=== PATIENT | female | born 1970 | race Caucasian/White ===

== ENCOUNTER 2019-08-14 18:33 | Emergency (ER) | payer MEDICAID ==
[~2019-08-14] VITALS: Ht 160 cm; Wt 68.2 kg
[~2019-08-14 18:33] MED LIST: IBUP-1986 PO
[2019-08-14] MEDS ORDERED: LIDOcaine 1% W/epiNEPHrine 1:200,000 10ml vial IJ ONE (20:35)
[2019-08-14] MEDS ORDERED: CEPH250T PO (20:49)
[2019-08-14] MEDS ORDERED: BACDS PO (20:49)
[2019-08-14 20:58] VITALS: BP 132/93
== END 2019-08-14 20:59 | disposition home or self-care (01) ==
LOC: ER 18:34
DX: L02.415 Cutaneous abscess of right lower limb (principal); F17.200 Nicotine dependence, unspecified, uncomplicated; Z88.5 Allergy status to narcotic agent; Z79.2 Long term (current) use of antibiotics; Z79.899 Other long term (current) drug therapy
CPT/HCPCS: 10060; 99283

== ENCOUNTER 2024-01-18 22:03 | Emergency (ER) | payer MEDICAID ==
[~2024-01-18] VITALS: Ht 160 cm; Wt 79.9 kg
[2024-01-18 23:06] VITALS: BP 132/112; PULSE 114; RESP 16; TEMP 99.1; O2SAT 98
== END 2024-01-18 23:29 | disposition home or self-care (01) ==
LOC: ER 22:03
DX: B34.9 Viral infection, unspecified (principal); Z20.822 Contact with and (suspected) exposure to COVID-19; Z88.6 Allergy status to analgesic agent; Z79.1 Long term (current) use of non-steroidal anti-inflammatories (NSAID)
CPT/HCPCS: 36415; 87811; 99283

== ENCOUNTER → 2024-09-18 | Emergency (ER) | payer MEDICAID ==
[~2024-09-18] VITALS: Ht 160 cm; Wt 83.3 kg
[~2024-09-18] MED LIST changes: +ALBU18HF2 INH; +GUAI120015 PO; +GUAI1TBM19 PO; +HYDR-3965 PO; +PRED10TA23 PO; +PRED20TA PO
[2024-09-18 12:13] VITALS: BP 164/107; PULSE 113; RESP 16; O2SAT 94
--- NOTE | 2024-09-18 12:38 | RADIOLOGY REPORT ---
EXAM: DI CHEST,SINGLE VIEW Indication: Pain; r/o pna Technique: Single frontal view of the chest was obtained Comparison: None FINDINGS: Lines and Tubes: None Lungs: No focal consolidation. Pleura: No effusion. No pneumothorax. Cardiomediastinal contours: Unremarkable Bones: No acute osseous abnormality. IMPRESSION: No acute cardiopulmonary disease.
--- NOTE | 2024-09-18 13:03 | Physician Documentation ---
History of Present Illness ~ Chief Complaint: Cold, cough & congestion Stated Complaint: COUGH Time Seen by MD: 13:02 HPI This is a 83-year-old female who presents to the emergency department due to a week of cough. She notes that she was had a history of pneumonia, it was concerned that this may be again happening. She also asks that a lump be examines. This is the site of a previous umbilical piercing. She was denies chills or fever, chest pain or shortness of breath. She does admit to long-term history of smoking, currently intaking about a 3rd of pack a day. Medication Reconciliation Allergies: Coded Allergies: acetaminophen (Unverified Allergy, Unknown, 01/18/24) hydrocodone (Verified Allergy, Unknown, 01/18/24) Scheduled Guaifenesin (Mucinex), 1 TAB PO Q12H Ibuprofen (Ibuprofen), 1 TAB PO Q8H Ibuprofen (Ibuprofen), 1 TAB PO Q8H Prednisone* (Prednisone*), 2 TAB PO DAILY Scheduled PRN Albuterol Sulfate (Ventolin Hfa), 2 PUFFS INH Q4HPRN PRN for wheezing Past Medical History Past Medical History: No Pertinent History Past Surgical History: noncontributory Lives with: Family Lives In: Home Review of Systems ROS As stated above in the HPI, otherwise all systems are reviewed and negative. Physical Exam Vital Signs: Temperature: 98.4, Source: Oral, Heart Rate: 113, Respiratory Rate: 16, BP: 164/107, Pulse Oximetry: 94, Weight: 83.300 Oxygen Flow Rate: 0 Physical Exam General: Alert, no apparent distress. Neck: Full range of motion. Respiratory: Moderate wheezing, no distress. Chest: No accessory muscle use. Cardiovascular: Regular rate and rhythm, no murmurs. Gastrointestinal: Soft, nontender, nondistended except at site of umbilical hernia, which is partially reducible but no purple/hard/discolored. Bowels sounds present. Extremities: Normal range of motion, no deformity. Neurologic: Oriented x4. Psychiatric: Normal mood and affect. Skin: Normal color, warm and dry. No edema, no ecchymosis. Progress Results/Orders Results/Orders Vital Signs 09/18/24 12:13 Temp 98.4 Pulse 113 Resp 16 B/P (MAP) 164/107 Pulse Ox 94 O2 Flow Rate 0 EKG/XRAY/CT/US/VASC/MRI Chest X-Ray : Additional Comments DIAGNOSTIC RADIOLOGY Patient: DIANNA BOURGEOIS Medical Record: [id number] [facility] 1970, Age: 53 Sex: Female Location: ER Patient Status: PRE ER Service Date/Time: 09/18/24/ 7 Ordering Physician: KODY KATHLEEN MD Exam: CHEST,SINGLE VIEW EXAM: DI CHEST,SINGLE VIEW Indication: Pain; r/o pna Technique: Single frontal view of the chest was obtained Comparison: None FINDINGS: Lines and Tubes: None Lungs: No focal consolidation. Pleura: No effusion. No pneumothorax. Cardiomediastinal contours: Unremarkable Bones: No acute osseous abnormality. IMPRESSION: No acute cardiopulmonary disease. Electronically Signed by:TOY TALBERT MD Date & Time: 09/18/24 1235 Dictated by: TOY TALBERT MD Dictation date and time: 09/18/24 1222 Primary Care Provider: cc: KODY KATHLEEN MD ~ Medical Decision Making Differential Dx:Considerations: Include: Allergic rhinitis, Influenza, Otitis media, Peritonsillar abscess, Pharyngitis-Diphtheria, Pharyngitis-Streptoccal, Pharyngitis-Viral, Pneumonia, Pnuemonitis, Sinusitis, URI Differential Diagnosis This patient presented with two concerns today. First of all, she was had a cough for a week, concerned about pneumonia. On exam, she was found to be in no distress it was normal oxygen saturations, but it was found to have moderate wheezing. A chest x-ray was obtained by the triage nurse. This is reviewed and interpreted as normal with no evidence of pneumonia. The patient has a long smoking history, and this likely represents an exacerbation of COPD or bronchitis. She will be treated with prednisone, Ventolin, Mucinex. Discussed with her danger signs of her umbilical hernia, and that she will eventually need to have surgery done for this. She should see her primary care and request a referral to General surgery. At this time, no evidence of surgical emergency was found. She is to return if worse. Departure Time of Disposition: 13:07 Disposition: 01 HOME / SELF CARE / HOMELESS Impression: Primary Impression: Umbilical hernia Qualified Codes: K42.9 - Umbilical hernia without obstruction or gangrene Additional Impressions: URI (upper respiratory infection) Qualified Codes: J06.9 - Acute upper respiratory infection, unspecified Acute bronchitis Qualified Codes: J20.9 - Acute bronchitis, unspecified Discharge Instructions: Umbilical Hernia, Adult, Upper Respiratory Infection, Adult, Acute Bronchitis, Adult Additional Instructions: The prescribed medications for your upper respiratory infection. Ask your primary care provider for a referral to General surgery to evaluate your umbilical hernia. He will provided with the contact information of local general surgeon Dr. Suarez. Return if worse, otherwise follow up with your primary care. Referrals: MECHE DEVI MD Prescriptions Prednisone* (Prednisone*) 20 Mg Tablet 2 TAB PO DAILY, #10 TAB Prov: ELY MANDEL NP 09/18/24 Guaifenesin (Mucinex) 1,200 Mg Tbbp.12hr 1 TAB PO Q12H for cough for 15 Days, #30 TAB 0 Refills Prov: ELY MANDEL NP 09/18/24 Albuterol Sulfate (Ventolin Hfa) 90 Mcg Hfa.aer.ad 2 PUFFS INH Q4HPRN PRN for wheezing for 30 Days, #18 GM 0 Refills Prov: ELY MANDEL NP 09/18/24 Education Educated: Patient Educated regarding: diagnosis, treatment, prognosis, need for follow up Signature Scribe Signature: no scribe Attestation: The note accurately reflects work and decisions made by me.Ely Khan NP 09/18/24 13:12 ELY MANDEL NP Sep 18, 2024 13:03
[2024-09-18 13:16] VITALS: TEMP 98.4
== END | disposition home or self-care (01) ==
LOC: ER 12:08
DX: K42.9 Umbilical hernia without obstruction or gangrene (principal); J20.9 Acute bronchitis, unspecified; J06.9 Acute upper respiratory infection, unspecified; Z88.6 Allergy status to analgesic agent; Z88.5 Allergy status to narcotic agent; Z79.1 Long term (current) use of non-steroidal anti-inflammatories (NSAID); Z79.899 Other long term (current) drug therapy
CPT/HCPCS: 71045; 99283

== ENCOUNTER 2024-09-19 16:10 | Inpatient (IN) | payer MEDICAID ==
[~2024-09-19] VITALS: Ht 160 cm; Wt 75.0 kg
[~2024-09-19 16:10] MED LIST changes: -GUAI1TBM19 PO; -HYDR-3965 PO; -PRED10TA23 PO
[2024-09-19 16:47] LABS: BASOPHILS % (AUTO) 0.2 % (0-1); EOSINOPHILS # (AUTO) 0.1 X10'3 (0-0.9); EOSINOPHILS % (AUTO) 0.6 % (0-6); HEMATOCRIT 46.6 % (35.0-45.0); HEMOGLOBIN 15.7 g/dl (12.0-16.0); LYMPHOCYTES # (AUTO) 2.9 X10'3 (1.1-4.8); LYMPHOCYTES % (AUTO) 25.3 % (21-51); MEAN CORPUSCULAR HEMOGLOBIN 29.5 PG (27.0-31.0); MEAN CORPUSCULAR HGB CONC 33.6 g/dL (33.0-36.5); MEAN CORPUSCULAR VOLUME 87.8 FL (78-98); MEAN PLATELET VOLUME 8.1 FL (7.4-10.4); MONOCYTES # (AUTO) 0.4 X10'3 (0-0.9); MONOCYTES % (AUTO) 3.5 % (2-12); NEUTROPHILS # (AUTO) 8.2 X10'3 (1.8-7.7); NEUTROPHILS % (AUTO) 70.4 % (42-75); PLATELET COUNT 319 X10'3 (140-440); RED BLOOD COUNT 5.31 X10'6 (4.20-5.60); RED CELL DISTRIBUTION WIDTH 13.9 % (11.5-14.5); WHITE BLOOD COUNT 11.6 X10'3 (4.5-11.0)
[2024-09-19 17:08] LABS: ALANINE AMINOTRANSFERASE 26 U/L (12-78); ALBUMIN 3.3 G/DL (3.4-5.0); ALBUMIN/GLOBULIN RATIO 0.7 (1.1-1.5); ALKALINE PHOSPHATASE 115 IU/L (46-116); ANION GAP 9 (8-16); ASPARTATE AMINO TRANSFERASE 18 U/L (10-37); BILIRUBIN,TOTAL 0.4 MG/DL (0.1-1.0); BLOOD UREA NITROGEN 13 MG/DL (7-18); BUN/CREATININE RATIO 15.5 (10.0-20.0); CALCIUM 9.1 MG/DL (8.5-10.1); CHLORIDE 105 MMOL/L (99-107); CREATININE 0.84 MG/DL (0.40-0.90); GLUCOSE 139 MG/DL (70-104); LIPASE 45 U/L (16-77); POTASSIUM 4.3 MMOL/L (3.5-5.1); SODIUM 140 MMOL/L (135-145); TOTAL PROTEIN 8.3 G/DL (6.4-8.2); eCRCL 63 ML/MIN; eGFR 70 ML/MIN
--- NOTE | 2024-09-19 17:10 | Physician Documentation ---
History of Present Illness Chief Complaint: Abdominal Pain Stated Complaint: HERNIA PAIN Time Seen by MD: 17:03 HPI 53 year old female with abdominal pain and a new hernia after a bout with bronchitis and considerable recent coughing. "The hernia is hurting me and I think it's the problem." Denies fever, vomiting, diarrhea, urinary symptoms. Medication Reconciliation Allergies: Coded Allergies: acetaminophen (Unverified Allergy, Unknown, 01/18/24) hydrocodone (Verified Allergy, Unknown, 01/18/24) Scheduled Guaifenesin (Mucinex), 1 TAB PO Q12H Ibuprofen (Ibuprofen), 1 TAB PO Q8H Ibuprofen (Ibuprofen), 1 TAB PO Q8H Prednisone* (Prednisone*), 2 TAB PO DAILY Scheduled PRN Albuterol Sulfate (Ventolin Hfa), 2 PUFFS INH Q4HPRN PRN for wheezing Past Medical History Past Medical History: No Pertinent History Past Surgical History: noncontributory Lives with: Family Lives In: Home Review of Systems All Other Systems at this time: Reviewed and Negative Physical Exam Vital Signs: RN Vital Signs have been reviewed: Yes, Temperature: 98.3, Source: Oral, Heart Rate: 94, Respiratory Rate: 15, BP: 158/105, Pulse Oximetry: 95, Weight: 75.050 Physical Exam HEENT: PERRL, moist oral mucosa, EOMI Pulmonary: No respiratory distress Cardiac: RRR, no murmur, rub or gallop GI: nondistended, soft, with 3cm subQ perumbilical hernia which is tender and not easily reducible MSK: no deformity Skin: w/d/i, no rash Neuro: alert, nonfocal Psych: normal affect Progress Results/Orders Results/Orders Orders - KODY KATHLEEN MD Urinalysis, Cult If Indicated (09/19/24 16:15) Hcg, Ur Ql (09/19/24 16:15) Completed Orders - KODY KATHLEEN MD Cbc/Diff (09/19/24 16:15) BMP (09/19/24 16:15) Lipase (09/19/24 16:15) CMP (09/19/24 16:15) Vital Signs 09/19/24 16:11 Temp 98.3 Pulse 94 Resp 15 B/P (MAP) 158/105 Pulse Ox 95 Laboratory Tests Test 09/19/24 16:30 White Blood Count 11.6 H Red Blood Count 5.31 Hemoglobin 15.7 Hematocrit 46.6 H Mean Corpuscular Volume 87.8 Mean Corpuscular Hemoglobin 29.5 Mean Corpuscular Hemoglobin Concent 33.6 Red Cell Distribution Width 13.9 Platelet Count 319 Mean Platelet Volume 8.1 Neutrophils (%) (Auto) 70.4 Lymphocytes (%) (Auto) 25.3 Monocytes (%) (Auto) 3.5 Eosinophils (%) (Auto) 0.6 Basophils (%) (Auto) 0.2 Neutrophils # (Auto) 8.2 H Lymphocytes # (Auto) 2.9 Monocytes # (Auto) 0.4 Eosinophils # (Auto) 0.1 Basophils # (Auto) 0.0 CBC Comment Sodium Level 140 Potassium Level 4.3 Chloride Level 105 Carbon Dioxide Level 26.0 Anion Gap 9 Blood Urea Nitrogen 13 Creatinine 0.84 Estimated GFR/1.73 m2 70 BUN/Creatinine Ratio 15.5 Glucose Level 139 H Calcium Level 9.1 Total Bilirubin 0.4 Aspartate Amino Transf (AST/SGOT) 18 Alanine Aminotransferase (ALT/SGPT) 26 Alkaline Phosphatase 115 Total Protein 8.3 H Albumin 3.3 L Globulin 5.0 H Albumin/Globulin Ratio 0.7 L Lipase 45 Chemistry Comments Medical Decision Making Findings 53 year old female with abdominal pain and hernia that I was unable to reduce several times despite considerable pressure and pain medications. Labs and CT pending, will sign out to oncoming ER physician for disposition. Additional Comments Ddx = incarcerated hernia, strangulated hernia, gastroenteritis, PUD, GERD, pancreatitis, UTI, kidney stone, bowel obstruction. Departure Disposition: 30 STILL A PATIENT Impression: Primary Impression: Periumbilical hernia Condition: Stable Referrals: NO PRIMARY CARE PROVIDER (PCP) Education Educated: Patient Educated regarding: diagnosis, treatment, prognosis, need for follow up Signature Scribe Signature: . Attestation: . KODY KATHLEEN MD Sep 19, 2024 17:10
[2024-09-19] MEDS ORDERED: iohexol 300mg/ml 100ml inj. ONE (17:29)
[2024-09-19] MEDS: HYDROmorphone 1 mg/ml syringe IV ONE (17:41)
--- NOTE | 2024-09-19 18:21 | RADIOLOGY REPORT ---
Exam: CT CT ABDOMEN PELVIS W/ IV CONTRAST History: abdominal pain, periumbilical hernia Comparison Study: None available at time of dictation. Contrast: Type of contrast: Omni 300 Contrast injected: 100 mL Contrast wasted: 0 TECHNIQUE: A digital motorcycle riding instructor image was obtained. During the uneventful, intravenous administration of c ontrast material, multislice data acquisition was obtained through the abdomen and pelvis. The data s et was subsequently reconstructed into axial images. Images were reviewed on a work station using a c ombination of axial and multiplanar using a variety of window levels and settings. Radiation Dose Information: CT Dose: CTDI volume is 29.27 mGy. Dose-length product is 1359.97 mGy*cm FINDINGS: Lung Bases: No acute or significant lung base finding. Normal heart size. No pleural or pericardial effusion. Liver: The liver is normal in size. No focal lesions. Normal hepatic vascular enhancement. Gallbladder and Biliary Tree: No calcified gallstones Spleen: Unremarkable Pancreas: The pancreas is normal in appearance without focal lesions or abnormal enhancement. Adrenal Glands: Unremarkable Kidneys: Kidneys demonstrate normal symmetric enhancement without focal lesions, calculi or hydroneph rosis. Bladder: Unremarkable Bowel: The stomach is grossly normal in appearance. Small bowel and colon are normal in caliber and d istribution. The appendix is not visualized; however, no secondary findings of acute appendicitis mayte ntified. Ascites: Absent Lymphadenopathy: No mesenteric, retroperitoneal or periportal lymphadenopathy. Abdominal Wall and Mesentery: 3.5 cm fat containing umbilical hernia Vasculature: The visualized abdominal aorta is normal in size and caliber. Abdominal and pelvic vess els demonstrate normal enhancement. Pelvic Organs: Unremarkable Musculoskeletal: No aggressive focal bony lesions, acute fractures or dislocation. Soft tissues: Unremarkable. IMPRESSION: 1. 1. Small hiatal hernia 2. 2. 3.5 cm fat containing umbilical hernia. 3. 3. No calcified gallstones. 4. 4. No nephrolithiasis or hydronephrosis. 5. 5. No findings of bowel obstruction. Stool in the right and transverse colon. 6. All CT scans at this medical facility are performed using dose modulation techniques as appropriat e to a performed exam including the following: Automated exposure control was utilized; adjustment of the MA and/or KV according to patient size; and use of iterative reconstruction technique. 7. HS:Y
[2024-09-19 19:49] LABS: BILIRUBIN,URINE NEGATIVE (Neg); CLARITY,URINE CLEAR (Clear); COLOR,URINE YELLOW (Yellow); GLUCOSE, URINE NEGATIVE (Neg); KETONES,URINE NEGATIVE (Neg); LEUKOCYTE ESTERASE ,URINE NEGATIVE (Neg); NITRITES, URINE NEGATIVE (Neg); OCCULT BLOOD,URINE NEGATIVE (Neg); PH,URINE 6.5 (4.8-8.0); PROTEIN,URINE NEGATIVE (Neg); UROBILINOGEN,URINE 0.2 E.U/dL (0.2-1.0)
[2024-09-19 19:51] LABS: URINE HCG NEGATIVE (NEG)
[2024-09-19 19:52] LABS: UA COLLECTION TYPE CLN CATCH MIDSTREAM
[2024-09-19] MEDS ORDERED: ondansetron/PF 4mg/2ml inj IV PRN (19:55)
--- NOTE | 2024-09-19 20:05 | HISTORY AND PHYSICAL-Residence ---
History & Physical Providers to CC Resident Creating Document: FIDELINA GLEZ RES ~ History of Present Illness Reason for Admit\Complaint: Abdominal pain History of Present Illness A 53-year-old female with no significant past medical history who was initially presented with acute bronchitis, experiencing persistent coughing over the past two weeks. This morning, she developed abrupt-onset periumbilical pain, progressively worsening in intensity 8/10, and associated with nausea and vomiting. She vomited once; food particles, no blood. She also noticed a lump in umblical region. This is the site of a previous umbilical piercing. Abdominal CT imaging revealed a fat containing hernia. She denies any fever, chills, chest pain, or shortness of breath. Dr. Rodriguez was consulted and evaluated the patient at bedside. Surgical intervention is planned for tomorrow morning. Patient was in ER yesterday with concern of pneumonia. She was discharged with prednisolone 10 mg, guaifenesin and albuterol. Allergies: Coded Allergies: acetaminophen (Unverified Allergy, Unknown, 01/18/24) hydrocodone (Verified Allergy, Unknown, 01/18/24) Home Medications Home Medications Active Prednisone* (Prednisone) 20 Mg Tablet 2 Tab PO DAILY Mucinex (Guaifenesin) 1,200 Mg Tbbp.12hr 1 Tab PO Q12H 15 Days Ventolin Hfa (Albuterol Sulfate) 90 Mcg Hfa.aer.ad 2 Puffs INH Q4HPRN PRN 30 Days Ibuprofen 800 Mg Tablet 1 Tab PO Q8H 10 Days Ibuprofen 800 Mg Tablet 1 Tab PO Q8H 10 Days Past Medical History Past Medical History No significant past medical history except for pneumonia Past Surgical History Surgical History Comment Not significant Past Social History Social History Comment Patient lives with her family, used to smoke cigarettes, quit five days ago. Lives with: Family Lives In: Home ROS All Other Systems: Reviewed and Negative ROS As stated above in the HPI, otherwise all systems are reviewed and negative. Exam Vitals: Vital Signs Date Time Temp Pulse Resp B/P (MAP) Pulse Ox O2 Delivery O2 Flow Rate FiO2 09/19/24 18:30 09/19/24 18:23 16 09/19/24 18:20 68 95 09/19/24 16:11 98.3 General: Awake and Alert, no acute distress. HEENT: Conjunctiva pink, Sclera clear, Mucus Membranes moist. Neck: Supple without masses and tenderness. Resp: Mild wheezing and mild rhonchi Unlabored. Lungs clear to auscultation bilaterally. Heart: Regular Rate and rhythm, normal S1 and S2 without murmur, rub or gallop. Abdomen: Periumbilical swelling and mild tenderness, bowel sounds present Extremities: No cyanosis,clubbing or edema. Skin: Warm and Dry. Diagnostic Data Last Recorded Lab Results: 09/19/24 1630 09/19/24 1630 Advance Care Planning Advanced Care plannin - 30 Minutes Additional Plan Assessment and plan: A 53-year-old female with no significant past medical history who was initially presented with acute bronchitis, experiencing persistent coughing over the past two weeks. This morning, she developed abrupt-onset periumbilical pain, progressively worsening in intensity 8/10, and associated with nausea and vomiting. Abdominal pain 2/2 fat containing umbilical hernia: Nonetheless WBC and lactic acid modestly elevated, she does not meet sepsis/SIRS criteria Pain management; controlled with Dilaudid 1 mg IV every 4 hours as needed. Allergy list included hydrocodone, however, patient tolerated Dilaudid in ER without any issues. Nausea/vomiting; Zofran 4 mg IV every [address] Rodriguez evaluated the patient, scheduled for surgery in am. Not on blood thinner Keep NPO after midnight Persistent cough secondary to acute bronchitis: Continue guaifenesin and albuterol Tobacco use disorder: I spent 10 minutes discussing smoking cessation with the patient including the risk of continuing to smoke: Lung cancer, stroke, heart attack, poor wound healing, increased in fascial wrinkling, cigarette smoke also leads a foul smell on clothing and fabrics, risk of MRSA skin infections. The expense of smoking cigarettes and how cigarettes have been scientifically engineered to be as addictive as humanly possible. The patient declined a nicotine patch at this time. DVT prophylaxis: Able to walk Code status: Full code Fidelina Glez Internal Medicine Resident Date of Service: Sep 19, 2024 Billing Provider: CASSIE CAMACHO MD, SHAMS, RES Sep 19, 2024 20:05 CASSIE CAMACHO MD Sep 20, 2024 02:15
[2024-09-19] MEDS: normal saline 1000ml 1,000 ML IV SCH (21:08)
[2024-09-20] VITALS (21 sets, daily range): BP systolic 112–177; BP diastolic 61–117; PULSE 59–104; RESP 12–22; TEMP 97.3–98.1; O2SAT 91–99
--- NOTE | 2024-09-20 02:42 | ELECTROCARDIOGRAPH REPORT ---
[facility] Test Date: 2024-09-20 Test Time: 02:40:03 Pat Name: DIANNA BOURGEOIS Department: EMERGENCY ROOM Room: ORTHO [facility] Gender: F Manufacturing Scheduler: STUDENT : 1970 Requested By: ESTELA VAZQUEZ Order Number: [id number] Reading MD: Dr. Jesús Shetty Measurements Intervals [place] Rate: 66 P: 60 [place]: 125 QRS: 49 QRSD: 92 T: 47 QT: 439 QTc: 460 Interpretive Statements Sinus rhythm Electronically Signed On 09-21-2024 19:03:[address] Jesús Shetty Please click the below link to view image of tracing.
--- NOTE | 2024-09-20 03:35 | RADIOLOGY REPORT ---
CHEST RADIOGRAPH Indication: PRE OP Technique: Single frontal view of the chest was obtained COMPARISON: DI CHEST,SINGLE VIEW on DOS: 09/18/24 FINDINGS: Lines and Tubes: None Lungs: Clear Pleura: No effusion. No pneumothorax. Cardiomediastinal contours: Unremarkable Bones: Unremarkable IMPRESSION: 1. No acute disease.
[2024-09-20 06:47] LABS: BASOPHILS # (AUTO) 0.1 X10'3 (0-0.2); BASOPHILS % (AUTO) 0.6 % (0-1); EOSINOPHILS % (AUTO) 0.1 % (0-6); HEMOGLOBIN 15.1 g/dl (12.0-16.0); LYMPHOCYTES # (AUTO) 3.1 X10'3 (1.1-4.8); LYMPHOCYTES % (AUTO) 24.6 % (21-51); MEAN CORPUSCULAR HEMOGLOBIN 29.4 PG (27.0-31.0); MEAN CORPUSCULAR HGB CONC 33.5 g/dL (33.0-36.5); MEAN CORPUSCULAR VOLUME 87.6 FL (78-98); MEAN PLATELET VOLUME 8.8 FL (7.4-10.4); MONOCYTES # (AUTO) 0.5 X10'3 (0-0.9); MONOCYTES % (AUTO) 4.3 % (2-12); NEUTROPHILS # (AUTO) 8.8 X10'3 (1.8-7.7); NEUTROPHILS % (AUTO) 70.4 % (42-75); PLATELET COUNT 293 X10'3 (140-440); RED BLOOD COUNT 5.14 X10'6 (4.20-5.60); WHITE BLOOD COUNT 12.6 X10'3 (4.5-11.0)
[2024-09-20 07:33] LABS: ALBUMIN 3.2 G/DL (3.4-5.0); ANION GAP 11 (8-16); BLOOD UREA NITROGEN 14 MG/DL (7-18); BUN/CREATININE RATIO 23.7 (10.0-20.0); CALCIUM 9.2 MG/DL (8.5-10.1); CHLORIDE 104 MMOL/L (99-107); CREATININE 0.59 MG/DL (0.40-0.90); GLUCOSE 90 MG/DL (70-104); SODIUM 139 MMOL/L (135-145); TOTAL CARBON DIOXIDE 23.7 MMOL/L (24-32); eCRCL 89 ML/MIN; eGFR > 90 ML/MIN
[2024-09-20 07:36] LABS: POTASSIUM 4.6 MMOL/L (3.5-5.1)
[2024-09-20] MEDS ORDERED: BUPIVAcaine 2.5mg/ml inj 50ml vial (contains preservative) ONE (07:40)
[2024-09-20] MEDS ORDERED: LIDOcaine 1% 30ml preserv. free vial ONE (07:40)
[2024-09-20] MEDS ORDERED: sevoflurane 250ml liquid IH ONE (07:52)
[2024-09-20] MEDS ORDERED: meperidine/PF 25mg/ml syringe IV PRN (08:00)
[2024-09-20] MEDS ORDERED: ondansetron/PF 4mg/2ml inj IV PRN (08:00)
[2024-09-20] MEDS ORDERED: morphine 4 MG/ML inj SYRINge IV PRN (08:00)
[2024-09-20] MEDS ORDERED: labetalol 20mg/4ml (5mg/ml) syringe IV PRN (08:00)
[2024-09-20] MEDS ORDERED: HYDROmorphone/PF 0.2 MG/ML SYRINGE IV PRN ×2 (08:00)
[2024-09-20] MEDS ORDERED: proCHLORperazine 10 MG/2 ml inj IV PRN (08:00)
[2024-09-20] MEDS ORDERED: morphine 2 MG/ML inj. syringe IV PRN (08:00)
[2024-09-20] MEDS ORDERED: midazolam 1 mg/ML 2ml injection ONE (08:03)
--- NOTE | 2024-09-20 08:05 | CONSULTATION REPORT ---
History of Present Illness Providers to CC CC: MECHE DEVI MD ~ Reason for Admit\Admit Dx: Abdominal pain History of Present Illness A 53-year-old female with no significant past medical history who was initially presented with acute bronchitis, experiencing persistent coughing over the past two weeks. This morning, she developed abrupt-onset periumbilical pain, progressively worsening in intensity 8/10, and associated with nausea and vomiting. She vomited once; food particles, no blood. She also noticed a lump in umblical region. I was called to evaluate the patient I reviewed her CT scan that shows a fat containing periumbilical hernia with a relatively small defect and fairly large amount of herniated preperitoneal fat and omentum Patient has a tender erythematous periumbilical mass Allergies: Coded Allergies: acetaminophen (Unverified Allergy, Unknown, 01/18/24) hydrocodone (Verified Allergy, Unknown, 01/18/24) Home Medications Home Medications Active Prednisone* (Prednisone) 20 Mg Tablet 2 Tab PO DAILY Mucinex (Guaifenesin) 1,200 Mg Tbbp.12hr 1 Tab PO Q12H 15 Days Ventolin Hfa (Albuterol Sulfate) 90 Mcg Hfa.aer.ad 2 Puffs INH Q4HPRN PRN 30 Days Past Medical History Medical History Comment Chronic cough Reactive airway disease Past Surgical History Surgical History Comment None reported Past Family History Family History Comment Not applicable Family History: Patient reports no known family medical history. Past Social History Social History Comment Not applicable Health Maintenance Health Maintenance Not applicable Physical Exam Last Vital Signs Recorded: RN Vital Signs have been reviewed: Yes, Temperature: 97.9, Source: Oral, Heart Rate: 69, Respiratory Rate: 19, BP: 122/68, Pulse Oximetry: 92, Weight: 75.050 General Appearance: alert, WD/WN EENT: PERRL/EOMI Neck: normal inspection Respiratory: lungs clear Cardiovascular: normal peripheral pulses, regular rate, rhythm Gastrointestinal Abdomen soft and nondistended Supraumbilical tender mass of about 3 cm in diameter with some mild erythematous changes to the skin This is not reducible Rectal: deferred Back: normal inspection Extremities: normal range of motion, no edema Neurologic: oriented x4 Psychiatric: normal mood/affect; No: anxiety Skin: normal color Lymphatic: no adenopathy Review of Systems ROS ROS Comments: Reviewed and negative with the exception of those found in the history of present illness Results Diagram Lab Result Diagram: 09/20/24 0535 09/20/24 0535 Assessment/Plan Problems/Diagnosis: (1) Incarcerated umbilical hernia Assessment & Plan: The risks, benefits, and alternatives to a robotic assisted, laparoscopic incarcerated umbilical hernia repair with mesh were discussed with the patient. Risks include, but are not limited to, bleeding, infection, injury to intra-abdominal structures, hernia recurrence and chronic postoperative pain. Patient verbalized understanding and we will proceed with surgery today. MECHE DEVI MD Sep 20, 2024 08:04
[2024-09-20] MEDS ORDERED: LIDOcaine 2% (20mg/ml) 5ml vial ONE (08:19)
[2024-09-20] MEDS ORDERED: ceFAZolin 1000mg inj ONE ×2 (08:19)
[2024-09-20] MEDS ORDERED: 0.9 % SODIUM CHLORIDE 10 ML VIAL ONE (08:19)
[2024-09-20] MEDS ORDERED: rocuronium 10mg/ml inj IV ONE (08:19)
[2024-09-20] MEDS ORDERED: propofol inj 20 ML IV ONE (08:19)
[2024-09-20] MEDS ORDERED: fentaNYL /PF 50mcg/ml 5ml ampule ONE (08:19)
[2024-09-20] MEDS ORDERED: ePHEDrine 50MG/ML INJ. ONE (08:20)
[2024-09-20] MEDS ORDERED: BUPIVAcaine/PF 2.5mg/ml (0.25%) 10ml vial ONE (08:32)
[2024-09-20] MEDS ORDERED: ondansetron/PF 4mg/2ml inj ONE (08:32)
[2024-09-20] MEDS ORDERED: BUPIVACAINE liposomal/PF 13.3 MG/ML 10mL vial IM ONE (08:32)
[2024-09-20] MEDS ORDERED: dexamethasone sod phosphate 4mg/ml inj. ONE (08:32)
[2024-09-20] MEDS: BUPIVAcaine/PF 2.5 mg/ml (0.25%) 30ml vial IJ ONE (08:47)
[2024-09-20] MEDS ORDERED: neostigmine methylsulfate 1 MG/ML 10ml vial ONE (09:03)
[2024-09-20] MEDS ORDERED: glycopyrrolate 0.2mg/ml inj ONE (09:03)
[2024-09-20] MEDS ORDERED: naloxone 0.4 mg/ml inj IV PRN (09:20)
[2024-09-20] MEDS: ringers solution, lacted 1,000 ML IV SCH (09:44)
[2024-09-20] MEDS: acetaminophen 1,000mg/100ml IV 100 ML IV PRN (09:44)
--- NOTE | 2024-09-20 09:45 | OPERATIVE REPORT ---
Operative Report Providers to CC: ALBERTO DEVI MD ~ Date of Procedure: Sep 20, 2024 Pre-Operative Diagnosis: Incarcerated umbilical hernia Post-Operative Diagnosis SAME as PRE-Op Procedure Performed Robotic assisted, laparoscopic incarcerated umbilical hernia repair with mesh Surgeon: Alberto Devi MD FACS Head Bucker None Anesthesiologist: Madhu Gonzalez Type of Anesthesia: General Findings: 2 cm incarcerated umbilical hernia Wound class I Complications None Prosthetics\Implants used: 12 cm diameter coated polyester mesh Estimated Blood Loss: Minimal Specimen Removed: None Description of Procedure: Patient was brought to the operating room and identified by the nursing staff and the attending physician. Patient was placed supine and a general anesthesia was induced. Preoperative antibiotics were given. The abdomen was prepped and draped in the standard sterile fashion. Through a left subcostal stab incision the abdomen was accessed with a Veress needle technique. Abdomen was insufflated without incident. The incision was lengthened to accommodate a 12 mm optical trocar and the abdomen was entered under laparoscopic visualization. The abdomen was surveyed laparoscopically. There was an obvious midline defect near the umbilicus but no intra-abdominal herniated contents. Under laparoscopic visualization, robotic trochars were placed in the left lateral and left lower quadrant. The da Nataliya robotic arm was docked to the patient and instruments guided intra-abdominally under laparoscopic visualization. Peritoneal rent was created lateral to the umbilicus and dissection was carried along the posterior rectus sheath toward the midline. At the level of the umbilicus, there was a fascial defect in the midline. A large amount of herniated and incarcerated preperitoneal fat and proximal falciform ligament was mobilized. Falciform was divided at this level and mobilized superiorly along the superiorly rectus sheath, creating space for mesh deployment. The herniated preperitoneal fat and proximal falciform ligament were then mobilized inferiorly, also allowing adequate space for infraumbilical mesh deployment. Fascial defect(s) were then reapproximated with running, nonabsorbable, 0V lock suture. Good fascial apposition was obtained without significant tension. A coated polyester mesh was then fixed to the anterior abdominal wall with running, absorbable, 2/0, V lock suture. Mesh laid without wrinkles or folds. The mesh measured 12 cm in diameter The da Nataliya instruments were then removed and the robot undocked from the patient. Bilateral transversus abdominis plane nerve blocks by injection were then placed under laparoscopic visualization using a combination of Marcaine and 266 mg of Exparel. The left subcostal trocar was removed and its fascia closed percutaneously with 0 Vicryl suture under laparoscopic visualization. Remaining trochars were removed after the abdomen was allowed to deflate. Skin was closed at all sites with 4-0 Monocryl sutures and dressed with sterile dressings. Patient was awakened and taken to the postanesthesia care unit in stable condition. Counts repoted as correct: Yes ALBERTO DEVI MD Sep 20, 2024 09:45
[2024-09-20] MEDS: hydrALAZINE 20mg/ml inj. IV PRN (09:46)
[2024-09-20] MEDS ORDERED: HYDR-3965 PO (10:44)
[2024-09-20] MEDS ORDERED: ALBU18HF2 INH (11:02)
[2024-09-20] MEDS ORDERED: GUAI1TBM19 PO (11:08)
[2024-09-20] MEDS ORDERED: PRED10TA23 PO (11:11)
[2024-09-20] MEDS: HYDROmorphone 1 mg/ml syringe IV PRN (11:20)
[2024-09-20] MEDS: oxyCODONE/APAP 5-325mg tablet PO PRN (20:05)
--- NOTE | 2024-09-20 20:59 | PROGRESS NOTE ---
Daily Progress Note Providers to CC ~ Antibiotic Timeout Antibiotic Ordered?: No Subjective pain controlled Objective Vital Signs Date Time Temp Pulse Resp B/P (MAP) Pulse Ox O2 Delivery O2 Flow Rate FiO2 09/20/24 18:00 98.1 78 16 113/74 (87) 92 Room Air 09/20/24 10:30 2.0 Result Diagram: 09/20/24 0535 09/20/24 0535 General: obese, no acute distress. Skin: No rashes, lumps, ulcers, blisters, purpura or petechiae; no nail abnormalities. HEENT: Sclerae clear, PERRL, normal hearing, gums without lesions or bleeding, oropharynx clear without erythema or exudate. Neck: Supple without enlargement of the thyroid, or lymphadenopathy. Chest: Normal size and shape, no tenderness, lung schilling clear to auscultation , nonlabored breathing. Heart: No jugular venous distention, normal carotid upstroke without bruits, PMI normal, S1 and S2 Abdomen: Soft mild tenderness bowel sounds are present Extremities : +2 pulses no edema Neuro: Alert oriented Problem\Assessment\Plan abd hernia, s/p repair with mesh by dr laguna; pain management h/o copd, stable lactic acidosis poa, resolved Date of Service: Sep 20, 2024 Billing Provider: CHANTAL PORTILLO MD Common Visit Codes: [id number] INP/OBS CARE(HIGH) CHANTAL PORTILLO MD Sep 20, 2024 20:59
[2024-09-21 06:00] VITALS: BP 146/82; PULSE 78; RESP 18; TEMP 98; O2SAT 95
[2024-09-21] MEDS: predniSONE 20 mg tablet PO SCH (06:55)
[2024-09-21 07:00] LABS: BASOPHILS # (AUTO) 0.1 X10'3 (0-0.2); BASOPHILS % (AUTO) 0.5 % (0-1); EOSINOPHILS % (AUTO) 0.1 % (0-6); HEMATOCRIT 42.7 % (35.0-45.0); HEMOGLOBIN 14.4 g/dl (12.0-16.0); LYMPHOCYTES % (AUTO) 18.7 % (21-51); MEAN CORPUSCULAR HEMOGLOBIN 29.5 PG (27.0-31.0); MEAN CORPUSCULAR HGB CONC 33.6 g/dL (33.0-36.5); MEAN CORPUSCULAR VOLUME 87.8 FL (78-98); MEAN PLATELET VOLUME 8.3 FL (7.4-10.4); MONOCYTES # (AUTO) 0.7 X10'3 (0-0.9); MONOCYTES % (AUTO) 4.5 % (2-12); NEUTROPHILS # (AUTO) 12.3 X10'3 (1.8-7.7); NEUTROPHILS % (AUTO) 76.2 % (42-75); PLATELET COUNT 328 X10'3 (140-440); RED BLOOD COUNT 4.86 X10'6 (4.20-5.60); RED CELL DISTRIBUTION WIDTH 13.9 % (11.5-14.5); WHITE BLOOD COUNT 16.1 X10'3 (4.5-11.0)
[2024-09-21 07:45] LABS: ANION GAP 10 (8-16); BLOOD UREA NITROGEN 16 MG/DL (7-18); BUN/CREATININE RATIO 20.8 (10.0-20.0); CALCIUM 8.8 MG/DL (8.5-10.1); CHLORIDE 104 MMOL/L (99-107); CREATININE 0.77 MG/DL (0.40-0.90); GLUCOSE 109 MG/DL (70-104); POTASSIUM 4.3 MMOL/L (3.5-5.1); SODIUM 141 MMOL/L (135-145); TOTAL CARBON DIOXIDE 26.6 MMOL/L (24-32); eCRCL 68 ML/MIN; eGFR 78 ML/MIN
[2024-09-21 10:00] VITALS: BP 156/94; PULSE 76; RESP 16; TEMP 98.4; O2SAT 95
--- NOTE | 2024-09-21 19:34 | DISCHARGE SUMMARY-Residence ---
Discharge Summary Providers to CC Resident Creating Document: NATALY KAUFMANMODESTAJENSENFAISAL ~ Discharge Summary Admission Diagnosis: Incarcerated umbilical hernia Hospital Course DATE OF ADMISSION: 09/19/2024 DATE OF DISCHARGE: 09/21/2024 Labs at the time of discharge WBCs 16.1 Hemoglobin 14.4 Sodium 141 Potassium 4.[address] 1. 1. Small hiatal hernia 2. 2. 3.5 cm fat containing umbilical hernia. 3. 3. No calcified gallstones. 4. 4. No nephrolithiasis or hydronephrosis. 5. 5. No findings of bowel obstruction. Stool in the right and transverse colon. Discharge Diagnosis\Comment: Periumbilical hernia, herniated preperitoneal fat and omentum s/p repair with mesh by dr laguna; POD one Acute bronchitis Operations\Procedures: Periumbilical hernia repair by Dr. Laguna Consultants: Dr. Laguna Complications: None Condition on DC: Stable New Medications: Hydrocodone Bit/Acetaminophen 5/325 MG (Fence 5/325 MG) 5 Mg/325 Mg Tablet 1 TAB PO Q6H PRN for pain, #14 TAB Discharge Summary: This is a 53-year-old female with no significant past medical history presented for acute onset periumbilical pain, progressively worsening, associated with nausea and vomiting. She also had acute bronchitis with persistent coughing for the last two weeks. Abdominal CT showed periumbilical hernia containing fat and omentum. Dr. Suarez was consulted, hernia repair was done by mesh. WBC count and lactic acid were elevated at the time of admission, trended down with IV fluids. Postprocedure patient was comfortable, pain management was done. Nausea and vomiting improved. Patient was placed on guaifenesin and albuterol for persistent cough. Patient has a history of tobacco use disorder, was advised to stop using tobacco. Patient has improved symptomatically and is stable enough to be discharged home. Next the time of discharge he had the following physical examination findings General: Awake and Alert, no acute distress. HEENT: Conjunctiva pink, Sclera clear, Mucus Membranes moist. Neck: Supple without masses and tenderness. Resp: Mild wheezing and mild rhonchi Unlabored. Lungs clear to auscultation bilaterally. Heart: Regular Rate and rhythm, normal S1 and S2 without murmur, rub or gallop. Abdomen: Dressing on the surgical site appears clear., bowel sounds present Extremities: No cyanosis,clubbing or edema. Skin: Warm and Dry. Discharge medication Fence five q.6 p.r.n. Activity as tolerated No lifting greater than 20 pounds for 4 weeks Remove Band-Aids in 48 hours Abdominal binder is for comfort reasons only. Wear at your discretion. May shower after Band-Aids removed Leave Steri-Strips in place for 7-10 days Diet as tolerated Call Dr. Laguna for an appointment in 2 weeks Call [phone] *Problems/Diagnosis: (1) Incarcerated umbilical hernia Total Time Spent on D/C: Up to 30 Minutes Date of Service: Sep 21, 2024 Billing Provider: CHANTAL PORTILLO MD Common Visit Codes: 94886-AEB/OBS DISCH DAY >30min EDA KAUFMAN, RES Sep 21, 2024 19:29 CHANTAL PORTILLO MD Sep 21, 2024 21:09
[2024-09-22 07:11] LABS: HBSAG SCREEN Negative (Negative); HEP B CORE AB, IGM Negative (Negative); HEP B CORE AB, TOT Negative (Negative); HEP B SURF AB Non Reactive (.)
== END 2024-09-21 11:10 | disposition home or self-care (01) | DRG 228 ==
LOC: ER 16:10 → ED HOLD 19:59 → ORTHO 4S 09-20 02:53
PROVIDERS: ADMIT Surgery Surgical Critical Care; ATTEND Internal Medicine
PROC: BW211ZZ Computerized Tomography (CT Scan) of Abdomen and Pelvis using Low Osmolar Contrast (ICD-10-PCS; 2024-09-19)
PROC: 8E0W4CZ Robotic Assisted Procedure of Trunk Region, Percutaneous Endoscopic Approach (ICD-10-PCS; 2024-09-20)
PROC: 0WUF4JZ Supplement Abdominal Wall with Synthetic Substitute, Percutaneous Endoscopic Approach (ICD-10-PCS; principal; 2024-09-20 07:52)
DX: K42.9 Umbilical hernia without obstruction or gangrene (principal); E87.20 Acidosis, unspecified; J20.9 Acute bronchitis, unspecified; J45.909 Unspecified asthma, uncomplicated; Z79.899 Other long term (current) drug therapy; Z88.6 Allergy status to analgesic agent
CPT/HCPCS: 36415; 71045; 74177; 80048; 80053; 81003; 81025; 82948; 83605; 83690; 85025; 86704; 86705; 86706; 87081; 87340; 93005; 96374; 99285; A4215; A4615; A4618; C1781; G0378; J0131; J0360; J0666; J0690; J1100; J1171; J2003; J2250; J2405; J2704; J2710; J3010; J3490; J7030; J7512; Q9967